=== PATIENT | female | born 2000 | race Caucasian/White ===

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

== ENCOUNTER 2021-01-21 23:08 | Emergency (ER) | payer BC ==
[~2021-01-21] VITALS: Ht 157.5 cm; Wt 99.8 kg
[~2021-01-21 23:08] MED LIST changes: +DULO60CA59 PO; +PREG75CA75 PO; +TOPI50TA13 PO
[2021-01-21 23:12] VITALS: BP 114/83
[2021-01-21] MEDS ORDERED: HYDR50TA76 (23:19)
[2021-01-21] MEDS ORDERED: FOLI1TAB33 (23:19)
[2021-01-21] MEDS ORDERED: ARIP10TA55 (23:19)
[2021-01-21] MEDS ORDERED: TOPI100T11 (23:19)
[2021-01-21] MEDS ORDERED: ADAL40PE5 (23:19)
--- NOTE | 2021-01-21 23:34 | ED Back Pain ---
General Chief Complaint: Back Problems Stated Complaint: BACK PAIN Nursing Triage Note: c/o lower back spasms since 1500 today. reports started when working on couch. Source of Information: Patient Exam Limitations: No Limitations History of Present Illness Date Seen by Provider: Jan 21, 2021 Time Seen by Provider: 23:29 Initial Comments Patient is a 20-year-old female who presents to the emergency room with a chief complaint of low back pain. Patient states she was attempting to put a couch cover on a cushion today when she lost her balance and fell. She states she has had multiple episodes of "muscle spasms" today. She is taken baclofen a couple of times and it has helped alleviate some of the spasm but she states the pain persist. Patient denies any prior trauma, falls, car accidents. She denies any numbness tingling or weakness in her legs. No loss of bowel or bladder function. She denies dysuria urgency or frequency, denies vaginal discharge, denies GI issues. No recent fevers or chills. She is on Loestrin for control and states that she is not . She does not have menstrual cycles. She states that she took tramadol at home for the pain. She used to be followed by but does not currently have a primary care physician. She sees a advanced nursing professor in for work-up of "arthritis". All other review of systems reviewed and negative except as stated. Timing/Duration: 12 Hours Severity: Moderate Pain/Injury Location: Back Associated Symptoms: muscle spasms; No numbness in legs/feet, No tingling in legs/feet, No sensory/motor loss; lower back pain; No loss of bladder control, No loss of bowel control Allergies and Home Medications Allergies Coded Allergies: oseltamivir (Verified Allergy, Unknown, Hives, 12/25/18) Uncoded Allergies: HICKORY NUTS (Allergy, Mild, 08/31/12) Home Medications Albuterol Sulfate 1 Puff Puff, 2 PUFF IH Q4H, (Reported) 1 PUFF = 90 MCG Duloxetine HCl 60 Mg Capsule.dr, 60 MG PO HS, (Reported) Hydroxyzine Pamoate 50 Mg Capsule, 50 MG PO Q6H PRN for ANXIETY Prescribed by: GISSEL HA on 09/29/19 0021 Pregabalin 75 Mg Capsule, 150 MG PO BID, (Reported) Topiramate 50 Mg Tablet, 50 MG PO BID, (Reported) Tramadol HCl 50 Mg Tablet, 50 MG PO Q4H, (Reported) Patient Home Medication List Home Medication List Reviewed: Yes Review of Systems Constitutional: see HPI Respiratory: no symptoms reported Cardiovascular: no symptoms reported Gastrointestinal: no symptoms reported Genitourinary: no symptoms reported : No Control/STD Prophylaxis: BC Pills Musculoskeletal: back pain, muscle pain Skin: no symptoms reported Psychiatric/Neurological: No Symptoms Reported All Other Systems Reviewed Negative Unless Noted: Yes Past Bpotmrx-Sfycqj-Qvandq Hx Patient Social History Tobacco Use?: No Substance use?: No Alcohol Use?: No Pt feels they are or have been: No Immunizations Up To Date PED Vaccines UTD: Yes First/Initial COVID19 Vaccinat: 09/27 Second COVID19 Vaccination Amadeo: 10/27 COVID19 Vaccine 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: [employer] Seasonal Allergies Seasonal Allergies: Yes Past Medical History Surgery/Hospitalization HX: breast reduction, t/a Surgeries: Yes Breast, Tonsillectomy Respiratory: Yes Asthma Cardiac: No Neurological: Yes Headaches /Migraines Reproductive Disorders: Yes Female Reproductive Disorders: Ovarian Cyst Sexually Transmitted Disease: No HIV/AIDS: No Genitourinary: No Gastrointestinal: No Musculoskeletal: Yes Chronic Back Pain Endocrine: No HEENT: No Cancer: No Psychosocial: Yes (OCD AND ASPERGER'S SYNDROME; SUICIDAL IDEATIONS/NO ATTEMPT) ADD/ADHD, Anxiety, Depression Integumentary: No Blood Disorders: No Adverse Reaction/Blood Tranf: No Physical Exam Vital Signs Vital Signs - First Documented 01/21/21 23:12 Temp 36.4 Pulse 102 Resp 18 B/P (MAP) 114/83 (93) Pulse Ox 96 O2 Delivery Room Air Capillary Refill : Less Than 3 Seconds Height, Weight, BMI Height: 5'2.00" Weight: 180lbs. oz. 81.838813uo; 40.00 BMI Method:Stated General Appearance: No Apparent Distress Neck: Normal Inspection Cardiovascular: Regular Rate, Rhythm Respiratory: No Accessory Muscle Use, No Respiratory Distress Back: Normal Inspection, Other (Patient endorses lower lumbar spinal tenderness more to the left, she states the pain radiates into her buttock. No point tenderness in the area of the sciatic nerve. No midline vertebral tenderness. No overlying redness or swelling or rash.; Negative straight leg raise bilaterally. Intact motor and sensory function to the lower extremities; patella reflexes bilaterally are 2+) Extremity: Normal Capillary Refill, Normal Inspection, Normal Range of Motion, Non Tender, No Calf Tenderness Neurologic/Psychiatric: Alert, Oriented x3, No Motor/Sensory Deficits, Normal Mood/Affect Skin: Normal Color, Warm/Dry Progress/Results/Core Measures Results/Orders Vital Signs/I&O 01/21/21 23:12 Temp 36.4 Pulse 102 Resp 18 B/P (MAP) 114/83 (93) Pulse Ox 96 O2 Delivery Room Air Blood Pressure Mean: 93 Progress Progress Note : Time: 23:47 Progress Note 20-year-old female presents to the emergency room with low back pain and muscle spasms. Physical exam is unremarkable save for a little tenderness to the lower lumbar left paraspinous musculature. No findings concerning for cauda equina, no loss of bowel or bladder function no sensory disturbance, no muscle weakness. No direct trauma. Patient is treated in the emergency department with Toradol and Norflex. She is sent with a prescription for prednisone. She is advised to follow-up with her primary care physician. She did request an MRI this evening but I explained to her that she had no acute findings that would warrant emergent imaging on her back. She is advised to follow-up with her primary care physician for this. She states she has had one in the past that showed "bulging disks". Departure Impression Primary Impression: Low back pain Qualified Codes: M54.5 - Low back pain Disposition: 01 HOME, SELF-CARE Condition: Stable Departure-Patient Inst. Decision time for Depature: 23:46 Referrals: [facility] [place] [facility],LOCAL PHYSICIAN (PCP) Primary Care Physician Patient Instructions: Low Back Pain in Adults Add. Discharge Instructions: Use a heating pad to your low back to help ease discomfort. I have sent a prescription of steroids, prednisone, to your pharmacy. Take this once daily for the next 3 days to help and alleviate inflammation in your low back. Continue your pain medication and muscle relaxers at home as previously prescribed. You will need to follow-up with a primary care physician for further refills on these medications. You can also take [id number] Aleve, 2 pills in the morning with food and 2 pills at night with food for pain. Return to the emergency room for any new, concerning or emergent complaints. Scripts Prednisone (Prednisone) 50 Mg Tab 50 MG PO DAILY, #3 TAB Prov: ODALIS HERRON MD 01/21/21 ODALIS HERRON MD Jan 21, 2021 23:34
[2021-01-21] MEDS ORDERED: KETOROLAC 60 MG/2 ML VIAL IM ONE (23:45)
[2021-01-21] MEDS ORDERED: ORPHENADRINE 60 MG/2 ML (NORFLEX) AMP (ED ONLY) IM ONE (23:45)
[2021-01-21] MEDS ORDERED: PRD50T PO (23:48)
== END 2021-01-21 23:57 | disposition home or self-care (01) ==
LOC: EDUNIT# 23:08 → ER 23:10
DX: M54.5 Low back pain (principal); J45.909 Unspecified asthma, uncomplicated; F41.9 Anxiety disorder, unspecified; F32.9 Major depressive disorder, single episode, unspecified; Z79.899 Other long term (current) drug therapy
CPT/HCPCS: 99284

== ENCOUNTER 2021-05-01 16:18 | Emergency (ER) | payer BC ==
[~2021-05-01] VITALS: Ht 157.5 cm; Wt 109.0 kg
[~2021-05-01 16:18] MED LIST changes: +ADAL40PE5; +ARIP10TA55; +FOLI1TAB33; +HYDR50TA76; +PRD50T PO; +TOPI100T11
--- NOTE | 2021-05-01 17:29 | ED Psychosocial ---
General Stated Complaint: SUICIDAL IDEATION Source: patient Exam Limitations: no limitations (JEANNINE ARANA APRN) History of Present Illness Date Seen by Provider: May 01, 2021 Time Seen by Provider: 17:24 Initial Comments To ER by private vehicle with reports of suicidal ideations. She states that if she could have gotten into her house today she would have killed herself. She has been feeling this way for about 1 week and relates that to breaking up with her boyfriend a few weeks ago. She has a history of OCD, anxiety, depression, schizophrenia. She follows with [facility]. She plans to overdose on the tramadol that she has at home for her chronic back pain to accomplish suicide. She also think she might have an STD as she is been having some vaginal discharge and would like to be checked for that. She is on Topamax, Rexulti, duloxetine, Abilify, Vistaril, tramadol (For chronic back pain) Timing/Duration: constant Severity: moderate Associated Symptoms: suicidal ideation (JEANNINE ARANA APRN) Allergies and Home Medications Allergies Coded Allergies: oseltamivir (Verified Allergy, Unknown, Hives, 12/25/18) Uncoded Allergies: HICKORY NUTS (Allergy, Mild, 08/31/12) Patient Home Medication List Home Medication List Reviewed: Yes (JEANNINE ARANA APRN) Adalimumab (Humira Pen) 40 Mg/0.4 Ml Pen.ij.kit, (Reported) Entered as Reported by: EMILY MARCOS on 01/21/212318 Albuterol Sulfate (Proair Hfa) 1 Puff Puff, 2 PUFF IH Q4H, (Reported) Entered as Reported by: STACEY ZAMBRANO on 09/28/192229 Aripiprazole (Aripiprazole) 10 Mg Tablet, (Reported) Entered as Reported by: EMILY MARCOS on 01/21/212318 Baclofen (Baclofen) 10 Mg Tablet, 10 MG PO, (Reported) Entered as Reported by: STACEY ZAMBRANO on 09/28/192229 Cholecalciferol (Vitamin D3) (Vitamin D3) 10 Mcg Capsule, 10 MCG PO, (Reported) Entered as Reported by: STACEY ZAMBRANO on 09/28/192229 Duloxetine HCl (Duloxetine HCl) 60 Mg Capsule.dr, 60 MG PO HS, (Reported) Entered as Reported by: ARVIND GHOTRA on 11/17/202141 Fexofenadine HCl (Kristina Allergy) 60 Mg Tablet, 60 MG PO, (Reported) Entered as Reported by: STACEY ZAMBRANO on 09/28/192229 Folic Acid (Folic Acid) 1 Mg Tablet, (Reported) Entered as Reported by: EMILY MARCOS on 01/21/212318 Hydroxyzine HCl (Hydroxyzine HCl) 50 Mg Tablet, (Reported) Entered as Reported by: EMILY MARCOS on 01/21/212318 Hydroxyzine Pamoate (Hydroxyzine Pamoate) 50 Mg Capsule, 50 MG PO Q6H PRN for ANXIETY Prescribed by: GISSEL HA on 09/29/1920 Montelukast Sodium (Montelukast Sodium) 10 Mg Tablet, (Reported) Entered as Reported by: EMILY MARCOS on 12/25/181924 Norgestrel-Ethinyl Estradiol (Ywz-Shrgkeuz-87 Tablet) 1 Each Tablet, (Reported) Entered as Reported by: EMILY MARCOS on 12/25/181924 Prednisone (Prednisone) 50 Mg Tab, 50 MG PO DAILY Prescribed by: ODALIS HERRON on 01/21/212347 Pregabalin (Pregabalin) 75 Mg Capsule, 150 MG PO BID, (Reported) Entered as Reported by: ARVIND GHOTRA on 11/17/202141 Topiramate (Topiramate) 50 Mg Tablet, 50 MG PO BID, (Reported) Entered as Reported by: ARVIND GHOTRA on 11/17/202141 Topiramate (Topiramate) 100 Mg Tablet, (Reported) Entered as Reported by: EMILY MARCOS on 01/21/212318 Tramadol HCl (Tramadol HCl) 50 Mg Tablet, 50 MG PO Q4H, (Reported) Entered as Reported by: STACEY ZAMBRANO on 09/28/192229 Review of Systems Constitutional: see HPI EENTM: see HPI Respiratory: no symptoms reported Cardiovascular: no symptoms reported Gastrointestinal: No abdominal pain Genitourinary: see HPI, discharge Musculoskeletal: no symptoms reported Skin: no symptoms reported Psychiatric/Neurological: See HPI (JEANNINE ARANA APRN) Past Javaemg-Vhfvei-Ixjmbi Hx Immunizations Up To Date PED Vaccines UTD: Yes (JEANNINE ARANA APRN) Seasonal Allergies Seasonal Allergies: Yes (JEANNINE ARANA APRN) Past Medical History Surgery/Hospitalization HX: breast reduction, t/a Surgeries: Yes Breast, Tonsillectomy Respiratory: Yes Asthma Cardiac: No Neurological: Yes Headaches /Migraines Reproductive Disorders: Yes Female Reproductive Disorders: Ovarian Cyst Sexually Transmitted Disease: No HIV/AIDS: No Genitourinary: No Gastrointestinal: No Musculoskeletal: Yes Chronic Back Pain Endocrine: No HEENT: No Cancer: No Psychosocial: Yes (OCD AND ASPERGER'S SYNDROME; SUICIDAL IDEATIONS/NO ATTEMPT) ADD/ADHD, Anxiety, Depression Integumentary: No Blood Disorders: No Adverse Reaction/Blood Tranf: No (JEANNINE ARANA APRN) Physical Exam Vital Signs - First Documented 05/01/21 17:19 Temp 36.8 Pulse 100 Resp 20 B/P (MAP) 133/98 (110) Pulse Ox 97 O2 Delivery Room Air (DILCIA,GISSEL K DO) Capillary Refill : (JEANNINE ARANA APRN) Height, Weight, BMI Height: 5'2.00" Weight: 180lbs. oz. 81.507699kw; 40.00 BMI Method:Stated General Appearance: WD/WN, no apparent distress HEENT: PERRL/EOMI, normal ENT inspection Respiratory: no respiratory distress, no accessory muscle use Cardiovascular: regular rate, rhythm, no murmur Gastrointestinal: normal bowel sounds, non tender, soft Extremities: normal range of motion, non-tender Neurologic/Psychiatric: alert, normal mood/affect, oriented x 3 Appearance/Memory: appropriate appearance, appropriate insight Behavior/Eye Contact: cooperative, good eye contact Thoughts/Hallucinations: normal thought pattern, no apparent hallucination Skin: normal color (JEANNINE ARANA APRN) Progress/Results/Core Measures Results/Orders Lab Results Laboratory Tests Test 05/01/21 17:30 05/01/21 18:00 Range/Units Urine Color YELLOW Urine Clarity CLEAR Urine pH 6.0 5-9 Urine Specific [place] 1.025 H 1.016-1.022 Urine Protein NEGATIVE NEGATIVE Urine Glucose (UA) NEGATIVE NEGATIVE Urine Ketones NEGATIVE NEGATIVE Urine Nitrite NEGATIVE NEGATIVE Urine Bilirubin NEGATIVE NEGATIVE Urine Urobilinogen 0.2 < = 1.0 MG/DL Urine Leukocyte Esterase NEGATIVE NEGATIVE Urine RBC (Auto) NEGATIVE NEGATIVE Urine RBC NONE /HPF Urine WBC 2-5 /HPF Urine Squamous Epithelial Cells 2-5 /HPF Urine Crystals PRESENT H /LPF Urine Amorphous Sediment FEW RUTHIE URATES H /LPF Urine Bacteria MODERATE H /HPF Urine Casts NONE /LPF Urine Mucus SMALL H /LPF Urine Culture Indicated YES Urine Opiates Screen NEGATIVE NEGATIVE Urine Oxycodone Screen NEGATIVE NEGATIVE Urine Methadone Screen NEGATIVE NEGATIVE Urine Propoxyphene Screen NEGATIVE NEGATIVE Urine Barbiturates Screen NEGATIVE NEGATIVE Ur Tricyclic Antidepressants Screen NEGATIVE NEGATIVE Urine Phencyclidine Screen NEGATIVE NEGATIVE Urine Amphetamines Screen NEGATIVE NEGATIVE Urine Methamphetamines Screen NEGATIVE NEGATIVE Urine Benzodiazepines Screen NEGATIVE NEGATIVE Urine Cocaine Screen NEGATIVE NEGATIVE Urine Cannabinoids Screen NEGATIVE NEGATIVE SARS-CoV-2 RNA (RT-PCR) Not Detected Not Detecte White Blood Count 7.2 4.3-11.0 10^3/uL Red Blood Count 4.32 3.80-5.11 10^6/uL Hemoglobin 13.3 11.5-16.0 g/dL Hematocrit 41 35-52 % Mean Corpuscular Volume 95 80-99 fL Mean Corpuscular Hemoglobin 31 25-34 pg Mean Corpuscular Hemoglobin Concent 32 32-36 g/dL Red Cell Distribution Width 12.2 10.0-14.5 % Platelet Count 265 130-400 10^3/uL Mean Platelet Volume 9.4 9.0-12.2 fL Immature Granulocyte % (Auto) 0 % Neutrophils (%) (Auto) 54 42-75 % Lymphocytes (%) (Auto) 39 12-44 % Monocytes (%) (Auto) 5 0-12 % Eosinophils (%) (Auto) 2 0-10 % Basophils (%) (Auto) 0 0-10 % Neutrophils # (Auto) 3.9 1.8-7.8 10^3/uL Lymphocytes # (Auto) 2.8 1.0-4.0 10^3/uL Monocytes # (Auto) 0.3 0.0-1.0 10^3/uL Eosinophils # (Auto) 0.1 0.0-0.3 10^3/uL Basophils # (Auto) 0.0 0.0-0.1 10^3/uL Immature Granulocyte # (Auto) 0.0 0.0-0.1 10^3/uL Sodium Level 140 135-145 MMOL/L Potassium Level 4.2 3.6-5.0 MMOL/L Chloride Level 108 H 98-107 MMOL/L Carbon Dioxide Level 18 L 21-32 MMOL/L Anion Gap 14 5-14 MMOL/L Blood Urea Nitrogen 13 7-18 MG/DL Creatinine 0.78 0.60-1.30 MG/DL Estimat Glomerular Filtration Rate 95 BUN/Creatinine Ratio 17 Glucose Level 142 H 70-105 MG/DL Calcium Level 9.0 8.5-10.1 MG/DL Corrected Calcium 9.0 8.5-10.1 MG/DL Total Bilirubin 0.2 0.1-1.0 MG/DL Aspartate Amino Transf (AST/SGOT) 21 5-34 U/L Alanine Aminotransferase (ALT/SGPT) 18 0-55 U/L Alkaline Phosphatase 55 40-136 U/L Total Protein 6.8 6.4-8.2 GM/DL Albumin 4.0 3.2-4.5 GM/DL Serum Test, Qualitative NEGATIVE NEGATIVE Salicylates Level < 5.0 L 5.0-20.0 MG/DL Acetaminophen Level < 10 L 10-30 UG/ML (GISSEL HA DO) Micro Results Microbiology 05/01/21 Genital Culture, Resulted Pending 05/01/21 Wet Prep - Final, Resulted (GISSEL HA DO) Medications Given in ED Current Medications Medications Dose Ordered Sig/Thais Route Start Time Stop Time Status Last Admin Dose Admin Ceftriaxone Sodium 1,000 mg ONCE ONCE IM 05/01/21 17:30 05/01/21 17:31 DC 05/01/21 18:03 1,000 MG Ketorolac Tromethamine 60 mg ONCE ONCE IM 05/01/21 20:15 05/01/21 20:16 DC 05/01/21 20:17 60 MG Lidocaine HCl 2.1 ml ONCE ONCE INJ 05/01/21 17:30 05/01/21 17:31 DC 05/01/21 18:03 2.1 ML (GISSEL HA DO) Vital Signs/I&O 05/01/21 05/01/21 17:19 20:51 Temp 36.8 Pulse 100 95 Resp 20 20 B/P (MAP) 133/98 (110) 128/88 Pulse Ox 97 98 O2 Delivery Room Air Room Air (GISSEL HA DO) Departure Communication (Admissions) 1727-Cooperative, flat affect. She will collect her own vaginal swabs. Will go ahead and treat empirically for chlamydia and gonorrhea with a one-time shot of Rocephin and azithromycin orally. Those results will not be back until sometime next week. 2035-Dr Callejas has accepted pt to psych inpatient at [facility]. Jessica Ruby will transport. (JEANNINE ARANA APRN) Impression Primary Impression: Suicidal ideations Disposition: XF SHT-TRM HOSP Condition: Stable Departure-Patient Inst. Referrals: NO,LOCAL PHYSICIAN (PCP/Family) Primary Care Physician ATTENDING PHYSICIAN NOTE: I WAS PHYSICALLY PRESENT ER PHYSICIAN WHEN THIS PATIENT WAS IN ER, BUT I WAS NOT INVOLVED IN ANY DECISION MAKING OR ANY CARE OF THIS PATIENT. (GISSEL HA DO) JEANNINE ARANA APRN May 01, 2021 17:28 GISSEL HA DO May 01, 2021 23:18
[2021-05-01] MEDS ORDERED: cefTRIAXone 1,000 MG VIAL IM ONE (17:30)
[2021-05-01] MEDS ORDERED: LIDOCAINE 1% INJ 20 ML 20 ML VIAL INJ ONE (17:30)
[2021-05-01] MEDS ORDERED: AZITHROMYCIN 250 MG TAB (ZITHROMAX) PO SCH (17:30)
[2021-05-01 17:48] LABS: BILIRUBIN,URINE NEGATIVE (NEGATIVE); CLARITY,URINE CLEAR; COLOR,URINE YELLOW; GLUCOSE, URINE (UA) NEGATIVE (NEGATIVE); KETONES,URINE NEGATIVE (NEGATIVE); LEUKOCYTE ESTERASE ,URINE NEGATIVE (NEGATIVE); NITRITE,URINE NEGATIVE (NEGATIVE); PROTEIN,URINE NEGATIVE (NEGATIVE)
[2021-05-01 18:09] LABS: BASOPHILS % (AUTO) 0 % (0-10); EOSINOPHILS # (AUTO) 0.1 10^3/uL (0.0-0.3); EOSINOPHILS % (AUTO) 2 % (0-10); HEMATOCRIT 41 % (35-52); HEMOGLOBIN 13.3 g/dL (11.5-16.0); LYMPHOCYTES # (AUTO) 2.8 10^3/uL (1.0-4.0); LYMPHOCYTES % (AUTO) 39 % (12-44); MEAN CORPUSCULAR HEMOGLOBIN 31 pg (25-34); MEAN CORPUSCULAR HGB CONC 32 g/dL (32-36); MEAN CORPUSCULAR VOLUME 95 fL (80-99); MEAN PLATELET VOLUME 9.4 fL (9.0-12.2); MONOCYTES # (AUTO) 0.3 10^3/uL (0.0-1.0); MONOCYTES % (AUTO) 5 % (0-12); NEUTROPHILS # (AUTO) 3.9 10^3/uL (1.8-7.8); NEUTROPHILS % (AUTO) 54 % (42-75); PLATELET COUNT 265 10^3/uL (130-400); WHITE BLOOD COUNT 7.2 10^3/uL (4.3-11.0)
[2021-05-01 18:13] LABS: AMORPHOUS SEDIMENT,UR FEW AMOR URATES /LPF; BACTERIA,URINE MODERATE /HPF
[2021-05-01 18:17] LABS: CHLORIDE 108 MMOL/L (98-107); POTASSIUM 4.2 MMOL/L (3.6-5.0); SODIUM 140 MMOL/L (135-145)
[2021-05-01 18:20] LABS: GLUCOSE 142 MG/DL (70-105); TOTAL PROTEIN 6.8 GM/DL (6.4-8.2)
[2021-05-01 18:21] LABS: AMPHETAMINE SCREEN, URINE NEGATIVE (NEGATIVE); BARBITURATE SCREEN URINE NEGATIVE (NEGATIVE); BENZODIAZEPINES SCREEN URINE NEGATIVE (NEGATIVE); CANNABINOID SCREEN, URINE NEGATIVE (NEGATIVE); COCAINE SCREEN URINE NEGATIVE (NEGATIVE); METHADONE STAT NEGATIVE (NEGATIVE); METHAMPHETAMINE SCREEN URINE S NEGATIVE (NEGATIVE); OPIATE SCREEN URINE NEGATIVE (NEGATIVE); OXYCODONE STAT NEGATIVE (NEGATIVE); PROPOXYPHENE STAT NEGATIVE (NEGATIVE); TRICYCLIC ANTIDEPRESSANTS SCRE NEGATIVE (NEGATIVE)
[2021-05-01 18:21] LABS: CARBON DIOXIDE 18 MMOL/L (21-32)
[2021-05-01 18:22] LABS: BILIRUBIN,TOTAL 0.2 MG/DL (0.1-1.0)
[2021-05-01 18:24] LABS: ALKALINE PHOSPHATASE 55 U/L (40-136); CREATININE SERUM 0.78 MG/DL (0.60-1.30); GFR ESTIMATED 95
[2021-05-01 18:25] LABS: ACETAMINOPHEN < 10 UG/ML (10-30); BUN/CREATININE RATIO 17
[2021-05-01 18:27] LABS: ALANINE AMINOTRANSFERASE 18 U/L (0-55); SALICYLATE < 5.0 MG/DL (5.0-20.0)
[2021-05-01] MEDS ORDERED: KETOROLAC 60 MG/2 ML VIAL IM ONE (20:15)
[2021-05-01 20:51] VITALS: BP 128/88
== END 2021-05-01 20:51 | disposition short-term general hospital (02) ==
LOC: EDUNIT# 16:18 → ER 16:20
DX: R45.851 Suicidal ideations (principal); J45.909 Unspecified asthma, uncomplicated; F41.9 Anxiety disorder, unspecified; F32.9 Major depressive disorder, single episode, unspecified; G89.29 Other chronic pain; M54.9 Dorsalgia, unspecified; Z20.822 Contact with and (suspected) exposure to COVID-19; Z79.899 Other long term (current) drug therapy; Z79.891 Long term (current) use of opiate analgesic
CPT/HCPCS: 80053; 80306; 81000; 84703 ×2; 85025; 87070; 87088; 87205; 87210; 87491; 87591; 87636; 93005; 99285; G0480 ×2; 36415; 80329

== ENCOUNTER 2021-10-28 21:52 | Emergency (ER) | payer BC ==
[~2021-10-28] VITALS: Ht 157.5 cm; Wt 115.7 kg
[~2021-10-28 21:52] MED LIST changes: +MONT-40; -MONT10TA32
[2021-10-28 22:11] VITALS: BP 124/109
--- NOTE | 2021-10-28 22:27 | ED Psychosocial ---
General Chief Complaint: Suicidal Ideation Risk Stated Complaint: SUICIDAL Source: patient Exam Limitations: no limitations (ODALIS HERRON MD) History of Present Illness Date Seen by Provider: October 28, 2021 Time Seen by Provider: 22:15 Initial Comments Patient is a 21-year-old female who presents to the emergency department today with a chief complaint of "feeling suicidal". Patient states that she woke up with these feelings and has had them all day. She is thinking about "cutting myself". She states she is never actually attempted suicide but has "come close in my thoughts". She states her last hospitalization she believes was in April 2021 but she cannot recall where she was hospitalized. She states she was started on Vraylar "for schizophrenia" at that time. She denies auditory or visual hallucinations at this time. She denies homicidal ideations. She has a history of cutting remotely. She denies having taken any medications other than her prescribed pills today. No recent illnesses other than a slight cold she got over a couple of days ago. She is not sure what triggered her thoughts of suicidal ideation today but it may be because she is about to start her menstrual cycle. She states that she has good family support, she lives with her mother and father. They lockup weapons at home but their medications are not secured. She states today she believes she needs hospitalized. She has not seen her therapist in "months" because she missed an appointment and doesnt like to make phone calls other than to her mother and boyfriend. Of note her demeanor does not match her complaint. She is quite cheerful and bright. Makes good eye contact. Is not withdrawn, does not appear sad. Does not appear scared. Is very [id number] in her conversation. All other review of systems reviewed and negative except as stated. Timing/Duration: this morning Severity: severe Associated Symptoms: suicidal ideation (ODALIS HERRON MD) Allergies and Home Medications Allergies Coded Allergies: oseltamivir (Verified Allergy, Unknown, Hives, 12/25/18) Uncoded Allergies: HICKORY NUTS (Allergy, Mild, 08/31/12) Patient Home Medication List Home Medication List Reviewed: Yes (ODALIS HERRON MD) Adalimumab (Humira Pen) 40 Mg/0.4 Ml Pen.ij.kit, (Reported) Entered as Reported by: EMILY MARCOS on 01/21/212318 Albuterol Sulfate (Proair Hfa) 1 Puff Puff, 2 PUFF IH Q4H, (Reported) Entered as Reported by: STACEY ZAMBRANO on 09/28/192229 Aripiprazole (Aripiprazole) 10 Mg Tablet, (Reported) Entered as Reported by: EMILY MARCOS on 01/21/212318 Baclofen (Baclofen) 10 Mg Tablet, 10 MG PO, (Reported) Entered as Reported by: STACEY ZAMBRANO on 09/28/192229 Cholecalciferol (Vitamin D3) (Vitamin D3) 10 Mcg Capsule, 10 MCG PO, (Reported) Entered as Reported by: STACEY ZAMBRANO on 09/28/192229 Duloxetine HCl (Duloxetine HCl) 60 Mg Capsule.dr, 60 MG PO HS, (Reported) Entered as Reported by: ARVIND GHOTRA on 11/17/202141 Fexofenadine HCl (Kristina Allergy) 60 Mg Tablet, 60 MG PO, (Reported) Entered as Reported by: STACEY ZAMBRANO on 09/28/192229 Folic Acid (Folic Acid) 1 Mg Tablet, (Reported) Entered as Reported by: EMILY MARCOS on 01/21/212318 Hydroxyzine HCl (Hydroxyzine HCl) 50 Mg Tablet, (Reported) Entered as Reported by: EMILY MARCOS on 01/21/212318 Hydroxyzine Pamoate (Hydroxyzine Pamoate) 50 Mg Capsule, 50 MG PO Q6H PRN for ANXIETY Prescribed by: GISSEL HA on 09/29/19 0021 Montelukast Sodium (Montelukast Sodium) 10 Mg Tablet, (Reported) Entered as Reported by: EMILY MARCOS on 12/25/181924 Norgestrel-Ethinyl Estradiol (Gzt-Ectnjzvp-35 Tablet) 1 Each Tablet, (Reported) Entered as Reported by: EMILY MARCOS on 12/25/181924 Prednisone (Prednisone) 50 Mg Tab, 50 MG PO DAILY Prescribed by: ODALIS HERRON on 01/21/212347 Pregabalin (Pregabalin) 75 Mg Capsule, 150 MG PO BID, (Reported) Entered as Reported by: ARVIND GHOTRA on 11/17/202141 Topiramate (Topiramate) 50 Mg Tablet, 50 MG PO BID, (Reported) Entered as Reported by: ARVIND GHOTRA on 11/17/202141 Topiramate (Topiramate) 100 Mg Tablet, (Reported) Entered as Reported by: EMILY MARCOS on 01/21/21 231 Tramadol HCl (Tramadol HCl) 50 Mg Tablet, 50 MG PO Q4H, (Reported) Entered as Reported by: STACEY ZAMBRANO on 09/28/192229 Review of Systems Constitutional: see HPI EENTM: no symptoms reported Respiratory: no symptoms reported Cardiovascular: no symptoms reported Gastrointestinal: no symptoms reported Genitourinary: no symptoms reported Musculoskeletal: no symptoms reported Skin: no symptoms reported Psychiatric/Neurological: Other (SI without HI. no hallucinations) (ODALIS HERRON MD) Past Viydmcz-Uhrkxz-Hffpdd Hx Immunizations Up To Date PED Vaccines UTD: Yes First/Initial COVID19 Vaccinat: 09/27 Second COVID19 Vaccination Amadeo: 10/27 (ODALIS HERRON MD) Seasonal Allergies Seasonal Allergies: Yes (ODALIS HERRON MD) Past Medical History Surgery/Hospitalization HX: SX: BREAST REDUCTION, T&A PMH: SCHIZOPHRENIA, DEPRESSION, OCD, ADHD Surgeries: Yes Breast, Tonsillectomy Respiratory: Yes Asthma Cardiac: No Neurological: Yes Headaches /Migraines Reproductive Disorders: Yes Female Reproductive Disorders: Ovarian Cyst Sexually Transmitted Disease: No HIV/AIDS: No Genitourinary: No Gastrointestinal: No Musculoskeletal: Yes Chronic Back Pain Endocrine: No HEENT: No Cancer: No Psychosocial: Yes (OCD AND ASPERGER'S SYNDROME; SUICIDAL IDEATIONS/NO ATTEMPT) ADD/ADHD, Anxiety, Depression Integumentary: No Blood Disorders: No Adverse Reaction/Blood Tranf: No (ODALIS HERRON MD) Physical Exam Vital Signs - First Documented 10/28/21 22:11 Temp 36.8 Pulse 123 Resp 22 B/P (MAP) 124/109 (114) Pulse Ox 100 O2 Delivery Room Air (VARSHA FREITAS) Capillary Refill : (ODALIS HERRON MD) Height, Weight, BMI Height: 5'2.00" Weight: 180lbs. oz. 81.838494uy; 43.00 BMI Method:Stated General Appearance: WD/WN, no apparent distress HEENT: PERRL/EOMI Respiratory: lungs clear, normal breath sounds, no respiratory distress, no accessory muscle use Cardiovascular: regular rate, rhythm, tachycardia (120) Gastrointestinal: other (obese) Extremities: normal inspection Neurologic/Psychiatric: alert, normal mood/affect, oriented x 3 Appearance/Memory: appropriate appearance, appropriate insight, neat Behavior/Eye Contact: cooperative, good eye contact, normal speech Thoughts/Hallucinations: normal thought pattern, no apparent hallucination Skin: normal color, warm/dry (ODALIS HERRON MD) Progress/Results/Core Measures Results/Orders Lab Results Laboratory Tests Test 10/28/21 22:28 10/28/21 22:34 10/28/21 22:42 Range/Units Urine Color YELLOW Urine Clarity CLEAR Urine pH 6.0 5-9 Urine Specific [place] >=1.030 1.016-1.022 Urine Protein NEGATIVE NEGATIVE Urine Glucose (UA) NEGATIVE NEGATIVE Urine Ketones NEGATIVE NEGATIVE Urine Nitrite NEGATIVE NEGATIVE Urine Bilirubin NEGATIVE NEGATIVE Urine Urobilinogen 0.2 < = 1.0 MG/DL Urine Leukocyte Esterase NEGATIVE NEGATIVE Urine RBC (Auto) 2+ H NEGATIVE Urine RBC 0-2 /HPF Urine WBC RARE /HPF Urine Squamous Epithelial Cells 2-5 /HPF Urine Crystals NONE /LPF Urine Bacteria MODERATE H /HPF Urine Casts NONE /LPF Urine Mucus NEGATIVE /LPF Urine Yeast FEW H /HPF Urine Culture Indicated NO Urine Test NEGATIVE NEGATIVE Urine Opiates Screen NEGATIVE NEGATIVE Urine Oxycodone Screen NEGATIVE NEGATIVE Urine Methadone Screen NEGATIVE NEGATIVE Urine Propoxyphene Screen NEGATIVE NEGATIVE Urine Barbiturates Screen NEGATIVE NEGATIVE Ur Tricyclic Antidepressants Screen NEGATIVE NEGATIVE Urine Phencyclidine Screen NEGATIVE NEGATIVE Urine Amphetamines Screen NEGATIVE NEGATIVE Urine Methamphetamines Screen NEGATIVE NEGATIVE Urine Benzodiazepines Screen NEGATIVE NEGATIVE Urine Cocaine Screen NEGATIVE NEGATIVE Urine Cannabinoids Screen NEGATIVE NEGATIVE SARS-CoV-2 RNA (RT-PCR) Not Detected Not Detecte White Blood Count 11.8 H 4.3-11.0 10^3/uL Red Blood Count 4.11 3.80-5.11 10^6/uL Hemoglobin 12.9 11.5-16.0 g/dL Hematocrit 39 35-52 % Mean Corpuscular Volume 96 80-99 fL Mean Corpuscular Hemoglobin 31 25-34 pg Mean Corpuscular Hemoglobin Concent 33 32-36 g/dL Red Cell Distribution Width 12.8 10.0-14.5 % Platelet Count 265 130-400 10^3/uL Mean Platelet Volume 9.7 9.0-12.2 fL Immature Granulocyte % (Auto) 0 % Neutrophils (%) (Auto) 58 42-75 % Lymphocytes (%) (Auto) 33 12-44 % Monocytes (%) (Auto) 6 0-12 % Eosinophils (%) (Auto) 2 0-10 % Basophils (%) (Auto) 0 0-10 % Neutrophils # (Auto) 6.9 1.8-7.8 10^3/uL Lymphocytes # (Auto) 3.9 1.0-4.0 10^3/uL Monocytes # (Auto) 0.7 0.0-1.0 10^3/uL Eosinophils # (Auto) 0.2 0.0-0.3 10^3/uL Basophils # (Auto) 0.0 0.0-0.1 10^3/uL Immature Granulocyte # (Auto) 0.1 0.0-0.1 10^3/uL Sodium Level 140 135-145 MMOL/L Potassium Level 3.9 3.6-5.0 MMOL/L Chloride Level 109 H 98-107 MMOL/L Carbon Dioxide Level 18 L 21-32 MMOL/L Anion Gap 13 5-14 MMOL/L Blood Urea Nitrogen 15 7-18 MG/DL Creatinine 0.83 0.60-1.30 MG/DL Estimat Glomerular Filtration Rate 103 BUN/Creatinine Ratio 18 Glucose Level 95 70-105 MG/DL Calcium Level 9.5 8.5-10.1 MG/DL Corrected Calcium 9.3 8.5-10.1 MG/DL Total Bilirubin 0.3 0.1-1.0 MG/DL Aspartate Amino Transf (AST/SGOT) 35 H 5-34 U/L Alanine Aminotransferase (ALT/SGPT) 69 H 0-55 U/L Alkaline Phosphatase 82 40-136 U/L Total Protein 7.3 6.4-8.2 GM/DL Albumin 4.3 3.2-4.5 GM/DL Salicylates Level < 5.0 L 5.0-20.0 MG/DL Acetaminophen Level < 10 L 10-30 UG/ML Serum Alcohol < 10 <10 MG/DL (VARSHA FREITAS) My Orders Orders - VARSHA FREITAS General/Regular (5/23/22 Breakfast) (VARSHA FREITAS) Vital Signs/I&O (VARSHA FREITAS) Progress Progress Note #1: Time: 04:00 Progress Note Patient has been screened by [facility] recommending inpatient placement. They will assist in finding psych placement. Patient did notify us that she is transgender and prefers "she/they" pronouns and would like to be referred to as "josseline" Progress Note #2: Time: 22:18 Progress Note 2218 10/29/21 Patient has had approximately 24 hours here in the emergency department, continuous monitoring. Medically cleared for psych placement however all facilities that [facility] for inpatient placement have declined to accept her based on her presentation here today. Patient continues to voice some suicidal thoughts. She did mention that she thought about "cutting" but no other plan to complete suicide. At 1 point today she was very tearful and upset desiring admission and frustrated that she was unable to get a bed. At this point in the evening the patient is stating that she would like to be discharged home. [facility] was [facility] again and they have agreed to construct a safety plan with the patient. They are going to arrange for follow- up later tomorrow as well as assist with getting her restarted back with her therapist. She will continue her current daily medications. Return precautions have been discussed. All questions are sought and answered. (ODALIS HERRON MD) Progress Note #1: Time: 06:49 Progress Note Assumed care of the patient at shift change. She is resting quietly. We have provided the breakfast meal and the screeners are seeking inpatient placement at this time. She is voluntary. She is medically cleared. I agree with the above documented history and physical exam. Overnight there were not able to find any beds for her however the health screener feel some beds will be opened up in the morning. Progress Note #2: Time: 15:53 Progress Note Patient is resting comfortably. She has been given lunch. She is with a bright, cheerful affect. She still endorses her desire to go inpatient for suicidal ideation. Nursing staff has been keeping in touch with [facility] and all the facilities they have spoke to so far have rejected her admission on the grounds that she does not meet criteria for inpatient placement. There is one place left and [facility] it is still reviewing her case. If they say no then [facility] plans to have the screener put a safety plan together and send her home for outpatient follow-up. Patient is aware of these updates. (VARSHA FREITAS) Initial ECG Impression Date: October 28, 2021 Initial ECG Impression Time: 22:32 Initial ECG Rate: 109 Initial ECG Rhythm: S.Tach Initial ECG Intervals: Normal Initial ECG Impression: Normal (ODALIS HERRON MD) Departure Impression Primary Impression: Suicidal ideations Disposition: 01 HOME, SELF-CARE Condition: Stable Departure-Patient Inst. Decision time for Depature: 22:20 (ODALIS HERRON MD) Referrals: NO,LOCAL PHYSICIAN (PCP/Family) Primary Care Physician Patient Instructions: OUTPT MENTAL HEALTH SERVICES Add. Discharge Instructions: Please continue your daily prescribed medications as previously instructed. Please call or have your significant other or mother call to arrange a follow-up with your therapist this week. Please return to the emergency room if you have worsening thoughts of self-harm, suicidal thoughts, homicidal thoughts, hear voices or have other hallucinations. Follow-up also with your primary care provider. [facility] [phone] [address] [place] [address] Get Immediate Help [email or web address] or Call [phone] ODALIS HERRON MD October 28, 2021 22:27 VARSHA FREITAS October 29, 2021 06:51
[2021-10-28 22:35] LABS: BILIRUBIN,URINE NEGATIVE (NEGATIVE); CLARITY,URINE CLEAR; COLOR,URINE YELLOW; GLUCOSE, URINE (UA) NEGATIVE (NEGATIVE); KETONES,URINE NEGATIVE (NEGATIVE); LEUKOCYTE ESTERASE ,URINE NEGATIVE (NEGATIVE); NITRITE,URINE NEGATIVE (NEGATIVE); PROTEIN,URINE NEGATIVE (NEGATIVE)
[2021-10-28 22:37] LABS: HCG,QUALITATIVE URINE NEGATIVE (NEGATIVE)
[2021-10-28 22:45] LABS: BACTERIA,URINE MODERATE /HPF; RBC,URINE 0-2 /HPF; WBC,URINE RARE /HPF; YEAST,URINE FEW /HPF
[2021-10-28 22:47] LABS: AMPHETAMINE SCREEN, URINE NEGATIVE (NEGATIVE); BARBITURATE SCREEN URINE NEGATIVE (NEGATIVE); BENZODIAZEPINES SCREEN URINE NEGATIVE (NEGATIVE); CANNABINOID SCREEN, URINE NEGATIVE (NEGATIVE); COCAINE SCREEN URINE NEGATIVE (NEGATIVE); METHADONE STAT NEGATIVE (NEGATIVE); OPIATE SCREEN URINE NEGATIVE (NEGATIVE); OXYCODONE STAT NEGATIVE (NEGATIVE); PROPOXYPHENE STAT NEGATIVE (NEGATIVE); TRICYCLIC ANTIDEPRESSANTS SCRE NEGATIVE (NEGATIVE)
[2021-10-28 22:49] LABS: BASOPHILS % (AUTO) 0 % (0-10); EOSINOPHILS # (AUTO) 0.2 10^3/uL (0.0-0.3); EOSINOPHILS % (AUTO) 2 % (0-10); HEMATOCRIT 39 % (35-52); HEMOGLOBIN 12.9 g/dL (11.5-16.0); LYMPHOCYTES # (AUTO) 3.9 10^3/uL (1.0-4.0); LYMPHOCYTES % (AUTO) 33 % (12-44); MEAN CORPUSCULAR HEMOGLOBIN 31 pg (25-34); MEAN CORPUSCULAR HGB CONC 33 g/dL (32-36); MEAN CORPUSCULAR VOLUME 96 fL (80-99); MEAN PLATELET VOLUME 9.7 fL (9.0-12.2); MONOCYTES # (AUTO) 0.7 10^3/uL (0.0-1.0); MONOCYTES % (AUTO) 6 % (0-12); NEUTROPHILS # (AUTO) 6.9 10^3/uL (1.8-7.8); NEUTROPHILS % (AUTO) 58 % (42-75); PLATELET COUNT 265 10^3/uL (130-400); WHITE BLOOD COUNT 11.8 10^3/uL (4.3-11.0)
[2021-10-28 22:59] LABS: ALBUMIN 4.3 GM/DL (3.2-4.5); CHLORIDE 109 MMOL/L (98-107); POTASSIUM 3.9 MMOL/L (3.6-5.0); SODIUM 140 MMOL/L (135-145)
[2021-10-28 23:00] LABS: CALCIUM 9.5 MG/DL (8.5-10.1)
[2021-10-28 23:01] LABS: GLUCOSE 95 MG/DL (70-105)
[2021-10-28 23:02] LABS: CARBON DIOXIDE 18 MMOL/L (21-32); TOTAL PROTEIN 7.3 GM/DL (6.4-8.2)
[2021-10-28 23:03] LABS: BILIRUBIN,TOTAL 0.3 MG/DL (0.1-1.0)
[2021-10-28 23:05] LABS: ALKALINE PHOSPHATASE 82 U/L (40-136); CREATININE SERUM 0.83 MG/DL (0.60-1.30); GFR ESTIMATED 103
[2021-10-28 23:06] LABS: BUN/CREATININE RATIO 18
[2021-10-28 23:08] LABS: ALANINE AMINOTRANSFERASE 69 U/L (0-55); SALICYLATE < 5.0 MG/DL (5.0-20.0)
[2021-10-28 23:19] LABS: ACETAMINOPHEN < 10 UG/ML (10-30)
== END 2021-10-29 22:36 | disposition home or self-care (01) ==
LOC: EDUNIT# 21:52 → ER 21:53
DX: R45.851 Suicidal ideations (principal); Z20.822 Contact with and (suspected) exposure to COVID-19; Z32.02 Encounter for pregnancy test, result negative
CPT/HCPCS: 80053; 80306; 81000; 84703 ×2; 85025; 87636; 93005; 93041; 99283; G0480 ×3; 36415; 80320; 80329

== ENCOUNTER → 2021-10-31 | Emergency (ER) | payer BC ==
[2021-10-31 00:38] LABS: BILIRUBIN,URINE NEGATIVE (NEGATIVE); CLARITY,URINE CLEAR; COLOR,URINE YELLOW; GLUCOSE, URINE (UA) NEGATIVE (NEGATIVE); KETONES,URINE NEGATIVE (NEGATIVE); LEUKOCYTE ESTERASE ,URINE NEGATIVE (NEGATIVE); NITRITE,URINE NEGATIVE (NEGATIVE); PH,URINE 6.5 (5-9); PROTEIN,URINE NEGATIVE (NEGATIVE)
[2021-10-31 00:56] LABS: BASOPHILS % (AUTO) 0 % (0-10); EOSINOPHILS # (AUTO) 0.2 10^3/uL (0.0-0.3); EOSINOPHILS % (AUTO) 2 % (0-10); HEMATOCRIT 40 % (35-52); HEMOGLOBIN 12.8 g/dL (11.5-16.0); LYMPHOCYTES # (AUTO) 4.2 10^3/uL (1.0-4.0); LYMPHOCYTES % (AUTO) 43 % (12-44); MEAN CORPUSCULAR HEMOGLOBIN 31 pg (25-34); MEAN CORPUSCULAR HGB CONC 32 g/dL (32-36); MEAN CORPUSCULAR VOLUME 95 fL (80-99); MEAN PLATELET VOLUME 9.5 fL (9.0-12.2); MONOCYTES # (AUTO) 0.6 10^3/uL (0.0-1.0); MONOCYTES % (AUTO) 6 % (0-12); NEUTROPHILS # (AUTO) 4.8 10^3/uL (1.8-7.8); NEUTROPHILS % (AUTO) 49 % (42-75); PLATELET COUNT 231 10^3/uL (130-400); WHITE BLOOD COUNT 9.9 10^3/uL (4.3-11.0)
[2021-10-31 01:02] LABS: BACTERIA,URINE TRACE /HPF; RBC,URINE 0-2 /HPF; SQUAMOUS EPITHELIAL CELL,UR 0-2 /HPF; WBC,URINE 0-2 /HPF
[2021-10-31 01:03] LABS: AMORPHOUS SEDIMENT,UR FEW AMOR PHOSPHATE /LPF; AMPHETAMINE SCREEN, URINE NEGATIVE (NEGATIVE); BARBITURATE SCREEN URINE NEGATIVE (NEGATIVE); BENZODIAZEPINES SCREEN URINE NEGATIVE (NEGATIVE); CANNABINOID SCREEN, URINE NEGATIVE (NEGATIVE); COCAINE SCREEN URINE NEGATIVE (NEGATIVE); HCG,QUALITATIVE URINE NEGATIVE (NEGATIVE); METHADONE STAT NEGATIVE (NEGATIVE); OPIATE SCREEN URINE NEGATIVE (NEGATIVE); OXYCODONE STAT NEGATIVE (NEGATIVE); PROPOXYPHENE STAT NEGATIVE (NEGATIVE); TRICYCLIC ANTIDEPRESSANTS SCRE NEGATIVE (NEGATIVE)
[2021-10-31 01:13] LABS: ALBUMIN 4.2 GM/DL (3.2-4.5); CHLORIDE 107 MMOL/L (98-107); POTASSIUM 3.8 MMOL/L (3.6-5.0); SODIUM 138 MMOL/L (135-145)
[2021-10-31 01:15] LABS: CALCIUM 9.3 MG/DL (8.5-10.1)
[2021-10-31 01:16] LABS: GLUCOSE 98 MG/DL (70-105)
[2021-10-31 01:17] LABS: CARBON DIOXIDE 19 MMOL/L (21-32)
[2021-10-31 01:18] LABS: BILIRUBIN,TOTAL 0.3 MG/DL (0.1-1.0)
[2021-10-31 01:20] LABS: ALKALINE PHOSPHATASE 77 U/L (40-136); GFR ESTIMATED 108
[2021-10-31 01:21] LABS: BUN/CREATININE RATIO 20
[2021-10-31 01:22] LABS: SALICYLATE < 5.0 MG/DL (5.0-20.0)
[2021-10-31 01:23] LABS: ALANINE AMINOTRANSFERASE 50 U/L (0-55)
[2021-10-31 01:28] LABS: ACETAMINOPHEN < 10 UG/ML (10-30)
[2021-10-31 01:43] LABS: TSH (THYROID ANALYZER) 5.61 UIU/ML (0.35-4.94)
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
[2021-10-31 02:36] LABS: FREE T4 (FREE THYROXINE) 0.83 NG/DL (0.70-1.48)
[2021-10-31 14:20] VITALS: BP 125/79
== END ==
LOC: EDUNIT# 00:03 → ER 00:06
DX: R45.851 Suicidal ideations (principal); E66.9 Obesity, unspecified; Z20.822 Contact with and (suspected) exposure to COVID-19
CPT/HCPCS: 80053; 80306; 81000; 84439; 84443; 84703; 85025; 87636; 93005; 99283; G0480 ×3; 36415; 80320; 80329

== ENCOUNTER 2022-03-01 11:30 | Emergency (ER) | payer BC ==
[2022-03-01] MEDS ORDERED: FAMOTIDINE 20 MG (PEPCID) TABLET PO ONE (12:00)
--- NOTE | 2022-03-01 13:22 | ED General ---
General Chief Complaint: Allergic Reaction Stated Complaint: ALLERGIC REACTION/SOA Nursing Triage Note: PT AMB TO RM 3 WITH C/O ALLERGIC REACTION TO UNKNOWN SOURCE. 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 PT TOOK BENADRYL X2 SEARCH CONSULTANT Source of Information: Patient Exam Limitations: No Limitations History of Present Illness Date Seen by Provider: Mar 01, 2022 Time Seen by Provider: 11:39 Initial Comments This 21-year-old young lady who goes by "[place]" presents to the emergency room with concerns about possible allergic reaction that started about 30 minutes prior to arrival. She took Benadryl 50 mg orally and symptoms have now improved. She had feeling of shortness of breath and itchiness. She thought perhaps she had hives as well. The shortness of breath has resolved and the itching is improving. Allergies and Home Medications Allergies Coded Allergies: celecoxib (Verified Allergy, Unknown, 10/31/21) meloxicam (Verified Allergy, Unknown, 10/31/21) oseltamivir (Verified Allergy, Unknown, Hives, 12/25/18) Uncoded Allergies: HICKORY NUTS (Allergy, Mild, 08/31/12) Patient Home Medication List Home Medication List Reviewed: Yes Adalimumab (Humira Pen) 40 Mg/0.4 Ml Pen.ij.kit, (Reported) Entered as Reported by: EMILY MARCOS on 01/21/212318 Albuterol Sulfate (Proair Hfa) 1 Puff Puff, 2 PUFF IH Q4H, (Reported) Entered as Reported by: STACEY ZAMBRANO on 09/28/192229 Aripiprazole (Aripiprazole) 10 Mg Tablet, (Reported) Entered as Reported by: EMILY MARCOS on 01/21/212318 Baclofen (Baclofen) 10 Mg Tablet, 10 MG PO, (Reported) Entered as Reported by: STACEY ZAMBRANO on 09/28/192229 Cholecalciferol (Vitamin D3) (Vitamin D3) 10 Mcg Capsule, 10 MCG PO, (Reported) Entered as Reported by: STACEY ZAMBRANO on 09/28/192229 Duloxetine HCl (Duloxetine HCl) 60 Mg Capsule.dr, 60 MG PO HS, (Reported) Entered as Reported by: ARVIND GHOTRA on 11/17/202141 Fexofenadine HCl (Kristina Allergy) 60 Mg Tablet, 60 MG PO, (Reported) Entered as Reported by: STACEY ZAMBRANO on 09/28/192229 Folic Acid (Folic Acid) 1 Mg Tablet, (Reported) Entered as Reported by: EMILY MARCOS on 01/21/212318 Hydroxyzine HCl (Hydroxyzine HCl) 50 Mg Tablet, (Reported) Entered as Reported by: EMILY MARCOS on 01/21/212318 Hydroxyzine Pamoate (Hydroxyzine Pamoate) 50 Mg Capsule, 50 MG PO Q6H PRN for ANXIETY Prescribed by: GISSEL HA on 09/29/19 0021 Montelukast Sodium (Montelukast Sodium) 10 Mg Tablet, (Reported) Entered as Reported by: EMILY MARCOS on 12/25/181924 Norgestrel-Ethinyl Estradiol (Uag-Xnalhfqm-32 Tablet) 1 Each Tablet, (Reported) Entered as Reported by: EMILY MARCOS on 12/25/181924 Prednisone (Prednisone) 50 Mg Tab, 50 MG PO DAILY Prescribed by: ODALIS HERRON on 01/21/212347 Pregabalin (Pregabalin) 75 Mg Capsule, 150 MG PO BID, (Reported) Entered as Reported by: ARVIND GHOTRA on 11/17/202141 Topiramate (Topiramate) 50 Mg Tablet, 50 MG PO BID, (Reported) Entered as Reported by: ARVIND GHOTRA on 11/17/202141 Topiramate (Topiramate) 100 Mg Tablet, (Reported) Entered as Reported by: EMILY MARCOS on 01/21/212318 Tramadol HCl (Tramadol HCl) 50 Mg Tablet, 50 MG PO Q4H, (Reported) Entered as Reported by: STACEY ZAMBRANO on 09/28/192229 Review of Systems Review of Systems Constitutional: no symptoms reported EENTM: see HPI Respiratory: see HPI Cardiovascular: no symptoms reported : No Musculoskeletal: no symptoms reported Skin: see HPI Psychiatric/Neurological: No Symptoms Reported Hematologic/Lymphatic: No Symptoms Reported Immunological/Allergic: see HPI Past Klwmibc-Pshbxw-Cbgvui Hx Patient Social History Tobacco Use?: No Use of E-Cig and/or Vaping dev: No Substance use?: No Alcohol Use?: No Pt feels they are or have been: No Immunizations Up To Date PED Vaccines UTD: Yes Influenza Vaccine Up-to-Date: No; Not Current First/Initial COVID19 Vaccinat: 09/27 Second COVID19 Vaccination Amadeo: 10/27 COVID19 Vaccine Operator Engineer: maru Seasonal Allergies Seasonal Allergies: Yes Past Medical History Surgery/Hospitalization HX: SX: BREAST REDUCTION, T&A PMH: SCHIZOPHRENIA, DEPRESSION, OCD, ADHD, ASTHMA Surgeries: Yes (BREAST REDUCTION AGE 17, wisdom teeth) Adenoidectomy, Breast (Reduction), Tonsillectomy Respiratory: Yes Asthma Cardiac: No Neurological: Yes Headaches /Migraines : No Reproductive Disorders: Yes Female Reproductive Disorders: Ovarian Cyst Sexually Transmitted Disease: No HIV/AIDS: No Genitourinary: No Gastrointestinal: No Musculoskeletal: Yes Rheumatoid Arthritis, Chronic Back Pain Endocrine: Yes (OBESITY) HEENT: No Cancer: No Psychosocial: Yes (OCD AND ASPERGER'S SYNDROME; SUICIDAL IDEATIONS/NO ATTEMPT) ADD/ADHD, Anxiety, Depression Integumentary: Yes (ACNE) Blood Disorders: No Adverse Reaction/Blood Tranf: No Family Medical History TRANSFERRED TO [facility] 05/01/21 FOR SUICIDAL IDEATIONS TRANSFERRED TO [facility] 11/2020 FOR SUICIDAL IDEATIONS Physical Exam Vital Signs Vital Signs - First Documented 03/01/22 11:34 Temp 36.6 Pulse 100 Resp 16 B/P (MAP) 137/76 (96) Capillary Refill : Height, Weight, BMI Height: 5'2.00" Weight: 180lbs. oz. 81.508251hd; 46.00 BMI Method:Stated General Appearance: No Apparent Distress, WD/WN HEENT: PERRL/EOMI, Normal ENT Inspection, Pharynx Normal Neck: Normal Inspection Respiratory: Lungs Clear, Normal Breath Sounds, No Accessory Muscle Use Cardiovascular: Regular Rate, Rhythm, No Edema, No Murmur Gastrointestinal: Normal Bowel Sounds, Non Tender, Soft Extremity: Normal Inspection, No Pedal Edema Neurologic/Psychiatric: Alert, Oriented x3, No Motor/Sensory Deficits, Normal Mood/Affect Skin: Normal Color, Warm/Dry, Rash (Acne) Progress/Results/Core Measures Suspected Sepsis SIRS Temperature: Pulse: 100 Respiratory Rate: 16 Blood Pressure 137 /76 Mean: 96 Results/Orders Lab Results Laboratory Tests Test 03/01/22 11:33 Range/Units Serum Test, Qualitative NEGATIVE NEGATIVE My Orders Orders - EULOGIO FLOOD MD Famotidine Tablet (Pepcid Tablet) (03/01/22 12:00) Hcg,Qualitative Serum (03/01/22 11:50) Medications Given in ED Current Medications Medications Dose Ordered Sig/Thais Route Start Time Stop Time Status Last Admin Dose Admin Famotidine 20 mg ONCE ONCE PO 03/01/22 12:00 03/01/22 12:01 DC 03/01/22 12:04 20 MG Vital Signs/I&O 03/01/22 03/01/22 11:34 13:26 Temp 36.6 36.6 Pulse 100 94 Resp 16 16 B/P (MAP) 137/76 (96) 133/70 Capillary Refill : Blood Pressure Mean: 96 Progress Note : Progress Note She was additionally given Pepcid. Patient was monitored for about 2 hours with resolution of symptoms and no adverse events. See discharge instructions. Departure Impression Primary Impression: Allergic reaction Qualified Codes: T78.40XA - Allergy, unspecified, initial encounter Disposition: HOME, SELF-CARE Condition: Improved Departure-Patient Inst. Decision time for Depature: 13:21 Referrals: NO,LOCAL PHYSICIAN (PCP/Family) Primary Care Physician Patient Instructions: Allergic Reaction ED Add. Discharge Instructions: Keep Benadryl or generic diphenhydramine with you at all times. If you have any further episodes of allergic reaction take Benadryl (diphenhydramine) 50 mg. If you do not have prompt resolution, return to the emergency room. If you have potentially life-threatening symptoms such as shortness of breath, throat tightening, swelling of the lips or tongue, lightheadedness, etc. present to the emergency room immediately after taking Benadryl or call 911. Take Pepcid (famotidine) 20 mg twice daily for the next few days. Be mindful of any potential triggers and avoid those triggers in the future. All discharge instructions reviewed with patient and/or family. Voiced understanding. EULOGIO FLOOD MD Mar 01, 2022 13:22
[2022-03-01 13:26] VITALS: BP 133/70
== END 2022-03-01 13:27 | disposition home or self-care (01) ==
LOC: EDUNIT# 11:30 → ER 11:32
DX: T78.40XA Allergy, unspecified, initial encounter (principal); E66.9 Obesity, unspecified; Z68.42 Body mass index [BMI] 45.0-49.9, adult
CPT/HCPCS: 36415; 84703

== ENCOUNTER → 2022-10-10 | Outpatient (CLI) | payer BC ==
[~2022-10-10] MED LIST changes: +ALBU8.5H6 IH; -RT-ALBUINH IH; +TOPI-241 PO; -TOPI50TA13 PO
--- NOTE | 2022-10-10 15:38 | Diagnostic Imaging Report ---
INDICATION: Low back pain and right hip pain. The patient was administered 26.9 mCi technetium 99m MDP intravenously and whole-body imaging was performed after a three-hour delay. No prior bone scan is available for comparison. There is normal uptake of activity by the axial and appendicular skeleton. There is uptake by the kidneys with excretion to the urinary bladder. No suspicious uptake is identified to suggest occult fracture or osseous metastatic disease. IMPRESSION: Unremarkable whole body bone scan. Dictated by: Dictated on workstation # [id number]
== END ==
LOC: CARD 11:39
PROVIDERS: ATTEND Allergy & Immunology
DX: M06.4 Inflammatory polyarthropathy (principal); R79.82 Elevated C-reactive protein (CRP)
CPT/HCPCS: 78306; A9503

== ENCOUNTER → 2022-12-12 | Outpatient (CLI) | payer OTHER ==
--- NOTE | 2022-12-12 16:03 | Diagnostic Imaging Report ---
EXAMINATION: Lumbosacral spine 2 or 3 views HISTORY: Low back pain. COMPARISON: 04/14/2020. FINDINGS: There is no acute fracture or dislocation of the lumbar spine. Alignment is anatomic. The vertebral body heights are well maintained. No significant degenerative changes are present in the lumbar spine. The included soft tissues are unremarkable. IMPRESSION: 1. No acute fracture or dislocation in the lumbar spine. Dictated by: Dictated on workstation # [id number]
== END ==
LOC: RAD 10:42
PROVIDERS: ATTEND Family Medicine
DX: Z02.71 Encounter for disability determination (principal); M54.50 Low back pain, unspecified
CPT/HCPCS: 72100

== ENCOUNTER → 2023-03-26 | Outpatient (CLI) | payer BC ==
[~2023-03-26] MED LIST changes: +CATHETER FLUSH 10 ML SYR IV PRN; +CEPH500T PO; +HOLD METFORMIN - RECEIVED CONTRAST 20 ML VIAL IV SCH; +IOHEXOL 350 MG/ML 100 ML (OMNIPAQUE 350) VIAL IV ONE; +NS 100 ML (IVPB) BAG IV ONE; -PREG75CA75 PO; +PREG75CA76 PO
--- NOTE | 2023-03-26 18:19 | Diagnostic Imaging Report ---
Indication: Papilledema. Head: Pre and postcontrast enhanced head CT showed no findings of cerebral edema. No findings to suggest an elevation of the intracranial pressures. There is no abnormal enhancement. No mass or mass effect. No hemorrhage. No hydrocephalus. Orbits: The globes appeared unremarkable. The extraocular muscles unremarkable. No post septal or retrobulbar edema. No proptosis. The sinuses where visualized were normal. Impression: Normal pre and postcontrast enhanced CT head and CT orbits. Dictated by: Dictated on workstation # [id number]
== END ==
LOC: RAD 17:05
PROVIDERS: ATTEND Optometrist
DX: H47.10 Unspecified papilledema (principal)
CPT/HCPCS: 70470; 70482